=== PATIENT | male | born 1955 | race Caucasian/White ===

== ENCOUNTER 2021-10-04 07:57 | Outpatient (CLI) | payer MEDICARE | END 2021-10-04 07:58 | disposition home or self-care (01) | LOC: TBSIIMAG 07:57 | PROVIDERS: ATTEND Family Medicine | DX: M47.24 Other spondylosis with radiculopathy, thoracic region (principal); G89.4 Chronic pain syndrome; Z87.81 Personal history of (healed) traumatic fracture | CPT/HCPCS: 72072; 72146 ==

== ENCOUNTER 2021-12-04 19:48 | Emergency (ER) | payer MEDICARE | END 2021-12-04 21:28 | disposition home or self-care (01) | LOC: ERS 19:48 | DX: J11.1 Influenza due to unidentified influenza virus with other respiratory manifestations (principal); I10 Essential (primary) hypertension; F17.210 Nicotine dependence, cigarettes, uncomplicated | CPT/HCPCS: 99283 ==

== ENCOUNTER 2022-05-17 09:40 | Observation (INO) | payer MEDICARE ==
[2022-05-17 10:28] LABS: #Eosinphils 0.1 thou/uL (0.0-0.7); #Lymphocytes 1.6 thou/uL (1.20-3.40); #Monocytes 0.7 thou/uL (0.11-0.59); %Basophils 0.2 % (0.0-1.0); %Eosinophils 0.9 % (0.0-10.0); %Lymphocytes 14.1 % (21.0-51.0); %Monocytes 6.1 % (0.0-10.0); %Neutrophils 78.8 % (42.0-75.0); Hemoglobin 16.8 g/dL (14.0-18.0); Mean Corpuscular HGB CONC 32.8 g/dL (32.0-36.0); Mean Corpuscular Hemoglobin 32.1 pg (27.0-31.0); Mean Corpuscular Volume 97.8 fL (78.0-98.0); Platelet Count 205 thou/uL (130-400); RBC Distribution Width 11.9 % (11.5-14.5); Red Blood Cell (RBC) Count 5.24 mill/uL (4.70-6.10); White Blood Cell (WBC) Count 11.4 thou/uL (4.8-10.8)
[2022-05-17 10:47] LABS: ALT (SGPT) 24 U/L (8-55); AST (SGOT) 32 U/L (5-34); Albumin 4.3 g/dL (3.4-4.8); Alkaline Phosphatase 134 U/L (40-110); Anion Gap 16 mmol/L (10-20); BUN (Urea Nitrogen) 21 mg/dL (8.4-25.7); Bilirubin, Total 1.7 mg/dL (0.2-1.2); Calc. Creatinine Clearance 0 mL/min (70-130); Calcium 9.7 mg/dL (7.8-10.44); Carbon Dioxide 25 mmol/L (23-31); Chloride 104 mmol/L (98-107); Glucose 157 mg/dL (80-115); Potassium 3.7 mmol/L (3.5-5.1); Protein, Total 7.3 g/dL (5.8-8.1); Sodium 141 mmol/L (136-145)
[2022-05-17] MEDS ORDERED: Promethazine HCl 12.5 MG in Sodium Chloride 0.9% 50 ML IVPB SCH (12:00)
[2022-05-17] MEDS ORDERED: Senokot S 8.6-50 MG TAB PO PRN (13:41)
[2022-05-17] MEDS ORDERED: Ondansetron PF 4 MG/2 ML Vial IVP PRN (13:41)
[2022-05-17] MEDS ORDERED: Ondansetron ODT 4 MG TAB PO PRN (13:41)
[2022-05-17] MEDS ORDERED: Lactated Ringer's 1,000 ML IV SCH ×2 (13:45→17:00)
[2022-05-17 14:03] LABS: Troponin I 0.012 ng/mL (< 0.028)
[2022-05-17] MEDS ORDERED: Boostrix 0.5 ML (Tdap) VIAL ONE (14:19)
[2022-05-17 15:54] VITALS: BMI 26.8
[2022-05-17] MEDS: Acetaminophen 500 MG TAB PO SCH ×2 (16:36→21:55)
[2022-05-17] MEDS ORDERED: hydrALAZINE 20 MG/ML VIAL SLOW IVP PRN (16:50)
[2022-05-17] MEDS ORDERED: cloNIDine 0.1 MG TAB PO PRN (17:08)
[2022-05-18] MEDS ORDERED: Morphine 4 MG/ML VIAL SLOW IVP SCH (03:30)
[2022-05-18 04:19] LABS: #Eosinphils 0.2 thou/uL (0.0-0.7); #Lymphocytes 2.7 thou/uL (1.20-3.40); #Monocytes 1.2 thou/uL (0.11-0.59); %Basophils 0.1 % (0.0-1.0); %Eosinophils 1.2 % (0.0-10.0); %Lymphocytes 17.7 % (21.0-51.0); %Monocytes 7.9 % (0.0-10.0); %Neutrophils 73.2 % (42.0-75.0); Hemoglobin 16.9 g/dL (14.0-18.0); Mean Corpuscular HGB CONC 33.2 g/dL (32.0-36.0); Mean Corpuscular Hemoglobin 32.5 pg (27.0-31.0); Mean Platelet Volume 7.2 fL (7.4-10.4); Platelet Count 234 thou/uL (130-400); RBC Distribution Width 12.1 % (11.5-14.5); Red Blood Cell (RBC) Count 5.21 mill/uL (4.70-6.10); White Blood Cell (WBC) Count 15.1 thou/uL (4.8-10.8)
[2022-05-18 04:52] LABS: Anion Gap 16 mmol/L (10-20); BUN (Urea Nitrogen) 15 mg/dL (8.4-25.7); Calc. Creatinine Clearance 87 mL/min (70-130); Calcium 9.7 mg/dL (7.8-10.44); Carbon Dioxide 24 mmol/L (23-31); Chloride 104 mmol/L (98-107); Glucose 111 mg/dL (80-115); Potassium 3.7 mmol/L (3.5-5.1); Sodium 140 mmol/L (136-145)
[2022-05-18] MEDS: Acetaminophen 500 MG TAB PO SCH ×2 (06:24→14:56)
[2022-05-18] MEDS ORDERED: Lisinopril/Hydrochlorothiazide 20/25 mg Tablet PO SCH (09:00)
[2022-05-18] MEDS ORDERED: Amlodipine 5 MG TAB PO SCH (09:00)
[2022-05-18] MEDS ORDERED: Triamterene/Hydrochlorothiazide 37.5 mg/25 mg Tablet PO SCH (09:00)
[2022-05-18] MEDS ORDERED: Meclizine HCl 12.5 MG TAB PO SCH ×2 (14:00→21:00)
[2022-05-18] MEDS ORDERED: Ibuprofen 800 MG TAB PO SCH (14:00)
[2022-05-18 15:28] VITALS: BP 157/70; TEMP 98.3
== END 2022-05-18 17:51 | disposition home or self-care (01) ==
LOC: ERS 09:40 → 2SW 15:36
PROVIDERS: ADMIT Family Medicine; ATTEND Family Medicine
DX: E86.0 Dehydration (principal); S06.0X9A Concussion with loss of consciousness of unspecified duration, initial encounter; R55 Syncope and collapse; S01.81XA Laceration without foreign body of other part of head, initial encounter; I12.9 Hypertensive chronic kidney disease with stage 1 through stage 4 chronic kidney disease, or unspecified chronic kidney disease; N18.9 Chronic kidney disease, unspecified; N17.9 Acute kidney failure, unspecified; M47.812 Spondylosis without myelopathy or radiculopathy, cervical region; Z87.891 Personal history of nicotine dependence; Z79.899 Other long term (current) drug therapy; Z20.822 Contact with and (suspected) exposure to COVID-19; X58.XXXA Exposure to other specified factors, initial encounter
CPT/HCPCS: 12002; 70450; 71045; 72125; 80048; 80053; 82550 ×2; 84484 ×2; 85025 ×2; 90715; 93005; 96365; 96375; 97139 ×2; 99285; G0378 ×3; U0003; U0005; 36415; J0360; J2270; J2550; J7120

== ENCOUNTER 2023-03-29 08:38 | Emergency (ER) | payer MEDICARE ==
[2023-03-29 09:12] LABS: #Eosinphils 0.2 thou/uL (0.0-0.7); #Lymphocytes 1.7 thou/uL (1.20-3.40); #Monocytes 0.5 thou/uL (0.11-0.59); #Neutrophils 5.4 thou/uL (1.40-6.50); %Basophils 0.2 % (0.0-1.0); %Eosinophils 2.8 % (0.0-10.0); %Lymphocytes 21.6 % (21.0-51.0); %Monocytes 6.7 % (0.0-10.0); %Neutrophils 68.8 % (42.0-75.0); Hemoglobin 16.4 g/dL (14.0-18.0); Mean Corpuscular Hemoglobin 33.5 pg (27.0-31.0); Mean Corpuscular Volume 95.7 fl (78.0-98.0); Mean Platelet Volume 7.1 fL (7.4-10.4); Platelet Count 218 10x3/uL (130-400); RBC Distribution Width 12.1 % (11.5-14.5); Red Blood Cell (RBC) Count 4.89 mill/uL (4.70-6.10); White Blood Cell (WBC) Count 7.9 10x3/uL (4.8-10.8)
[2023-03-29 09:34] LABS: ALT (SGPT) 17 U/L (8-55); AST (SGOT) 21 U/L (5-34); Albumin 4.5 g/dL (3.4-4.8); Alkaline Phosphatase 132 U/L (40-110); Anion Gap 14 mmol/L (10-20); BUN (Urea Nitrogen) 18 mg/dL (8.4-25.7); Bilirubin, Total 2.1 mg/dL (0.2-1.2); Calc. Creatinine Clearance 0 mL/min (70-130); Calcium 9.9 mg/dL (7.8-10.44); Carbon Dioxide 20 mmol/L (23-31); Chloride 109 mmol/L (98-107); Estimated GFR 78; Globulin 3.3 g/dL (2.4-3.5); Glucose 139 mg/dL (80-115); Potassium 3.7 mmol/L (3.5-5.1); Protein, Total 7.8 g/dL (5.8-8.1); Sodium 139 mmol/L (136-145)
== END 2023-03-29 13:00 | disposition home or self-care (01) ==
LOC: ERS 08:38
DX: R07.89 Other chest pain (principal); I10 Essential (primary) hypertension; Z79.899 Other long term (current) drug therapy
CPT/HCPCS: 36415; 71045; 80053; 83880; 84484; 85025; 93005; 94760

== ENCOUNTER 2024-07-14 06:27 | Day surgery (SDC) | payer MEDICARE ==
[2024-07-11 12:43] VITALS: BMI 29.1
[2024-07-14] MEDS ORDERED: PROPOFOL 40 ML ONE (08:09)
[2024-07-14] MEDS ORDERED: Lidocaine 1% PF 5 ML VIAL ONE (08:10)
[2024-07-14] MEDS ORDERED: PROPOFOL 20 ML ONE ×3 (09:11→09:42)
[2024-07-14] MEDS ORDERED: Ondansetron PF 4 MG/2 ML Vial ONE (10:43)
== END 2024-07-14 11:44 | disposition home or self-care (01) ==
LOC: SDC 06:27
PROVIDERS: ATTEND Internal Medicine Gastroenterology
PROC: 0DBH8ZZ Excision of Cecum, Via Natural or Artificial Opening Endoscopic (ICD-10-PCS; principal; 2024-07-14)
PROC: 0DBL8ZZ Excision of Transverse Colon, Via Natural or Artificial Opening Endoscopic (ICD-10-PCS; 2024-07-14)
DX: Z12.11 Encounter for screening for malignant neoplasm of colon (principal); D12.3 Benign neoplasm of transverse colon; K50.119 Crohn's disease of large intestine with unspecified complications; Z86.010 Personal history of colon polyps; F41.9 Anxiety disorder, unspecified; F32.A Depression, unspecified; I10 Essential (primary) hypertension; G47.00 Insomnia, unspecified; E55.9 Vitamin D deficiency, unspecified; Z90.49 Acquired absence of other specified parts of digestive tract; Z98.890 Other specified postprocedural states
CPT/HCPCS: 45385; C1889; J2405; J2704; 88305